=== PATIENT | female | born 1965 | race Caucasian/White ===

== ENCOUNTER 2017-02-09 08:38 | Outpatient (CLI) | payer OTHER ==
[2017-02-09 09:22] LABS: BASOPHILS # (AUTO) 0.2 K/uL (0.00-0.22); BASOPHILS % (AUTO) 3.4 % (0.0-2.0); EOSINOPHILS # (AUTO) 0.2 K/uL (0-0.4); EOSINOPHILS % (AUTO) 2.7 % (0.0-4.0); HEMATOCRIT 37.1 % (36-48); HEMOGLOBIN 12.5 g/dL (12.0-16.0); LYMPHOCYTES # (AUTO) 1.4 K/uL (2.5-16.5); LYMPHOCYTES % (AUTO) 23.4 % (20.5-51.1); MEAN CORPUSCULAR HEMOGLOBIN 31 pg (27-31); MEAN CORPUSCULAR HGB CONC 34 g/dL (33-37); MEAN CORPUSCULAR VOLUME 93 fL (80-94); MONOCYTES # (AUTO) 0.6 K/uL (0.8-1.0); MONOCYTES % (AUTO) 9.3 % (1.7-9.3); NEUTROPHILS # (AUTO) 3.5 K/uL (1.8-7.7); NEUTROPHILS % (AUTO) 61.2 % (42.2-75.2); PLATELET COUNT (AUTO) 269 K/uL (140-450); RED BLOOD CELL COUNT(AUTO) 3.99 MIL/uL (4.20-5.40); WHITE BLOOD COUNT (AUTO) 5.9 K/uL (4.8-10.8)
[2017-02-09 09:46] LABS: APPEARANCE,URINE CLEAR (CLEAR); BILIRUBIN,URINE NEGATIVE (NEGATIVE); BLOOD, URINE NEGATIVE (NEGATIVE); COLOR,URINE YELLOW (YELLOW); LEUKOCYTE ESTERASE ,URINE NEGATIVE (NEGATIVE); NITRITE, URINE NEGATIVE (NEGATIVE); UGLUCOSE NEGATIVE (NEGATIVE)
[2017-02-09 09:48] LABS: RBC,URINE NONE SEEN /HPF (0-5); WBC,URINE 0-5 (RARE) /HPF (0-5)
[2017-02-09 09:52] LABS: ALBUMIN 3.8 g/dL (3.4-5.0); ANION GAP 10.2 (8-16); CARBON DIOXIDE 26.9 mmol/L (21-32); CHOL/HDL RATIO 2.4 (1-4.5); CREATININE 0.8 mg/dL (0.6-1.3); POTASSIUM 4.1 mmol/L (3.5-5.1); THYROID STIMULATING HORMONE 2.25 uIU/mL (0.34-3.74); TOTAL BILIRUBIN 0.3 mg/dL (0.0-1.0)
== END 2017-02-09 20:12 | disposition home or self-care (01) ==
LOC: MLB 08:38
PROVIDERS: ATTEND Family Medicine Geriatric Medicine
DX: Z13.21 Encounter for screening for nutritional disorder (principal); Z13.1 Encounter for screening for diabetes mellitus; Z13.228 Encounter for screening for other metabolic disorders; Z13.0 Encounter for screening for diseases of the blood and blood-forming organs and certain disorders involving the immune mechanism; Z13.220 Encounter for screening for lipoid disorders
CPT/HCPCS: 36415; 80053; 81001; 82306; 83036; 84443; 85025; 87086

== ENCOUNTER 2018-04-16 13:02 | Outpatient (CLI) | payer OTHER ==
[2018-04-16 13:40] LABS: BASOPHILS % (AUTO) 0.5 % (0.0-2.0); EOSINOPHILS # (AUTO) 0.1 K/uL (0-0.4); EOSINOPHILS % (AUTO) 1.3 % (0.0-4.0); HEMATOCRIT 38.7 % (36-48); HEMOGLOBIN 12.8 g/dL (12.0-16.0); LYMPHOCYTES % (AUTO) 29.5 % (20.5-51.1); MEAN CORPUSCULAR HEMOGLOBIN 31 pg (27-31); MEAN CORPUSCULAR HGB CONC 33 g/dL (33-37); MEAN CORPUSCULAR VOLUME 94.4 fL (80-94); MONOCYTES # (AUTO) 0.3 K/uL (0.8-1.0); MONOCYTES % (AUTO) 5.2 % (1.7-9.3); NEUTROPHILS # (AUTO) 4.2 K/uL (1.8-7.7); NEUTROPHILS % (AUTO) 63.5 % (42.2-75.2); PLATELET COUNT (AUTO) 236 K/uL (140-450); RED BLOOD CELL COUNT(AUTO) 4.09 MIL/uL (4.20-5.40); RED CELL DISTRIBUTION WIDTH 12.8 % (11.6-13.7); WHITE BLOOD COUNT (AUTO) 6.6 K/uL (4.8-10.8)
[2018-04-16 13:54] LABS: ALBUMIN 3.9 g/dL (3.4-5.0); ANION GAP 10.1 (8-16); CARBON DIOXIDE 30.7 mmol/L (21-32); CHOL/HDL RATIO 2.8 (1-4.5); CREATININE 0.7 mg/dL (0.6-1.3); POTASSIUM 3.8 mmol/L (3.5-5.1); THYROID STIMULATING HORMONE 1.87 uIU/mL (0.34-3.74); TOTAL BILIRUBIN 0.4 mg/dL (0.0-1.0)
== END 2018-04-16 20:56 | disposition home or self-care (01) ==
LOC: MLB 13:02
PROVIDERS: ATTEND Internal Medicine Geriatric Medicine
DX: Z76.89 Persons encountering health services in other specified circumstances (principal)
CPT/HCPCS: 36415; 80053; 82306; 84443; 85025

== ENCOUNTER 2019-01-21 13:52 | Outpatient (CLI) | payer OTHER | END 2019-01-21 20:15 | disposition home or self-care (01) | LOC: MUS 13:52 | PROVIDERS: ATTEND Internal Medicine Geriatric Medicine | DX: N85.2 Hypertrophy of uterus (principal); K57.30 Diverticulosis of large intestine without perforation or abscess without bleeding; Z90.49 Acquired absence of other specified parts of digestive tract ==

== ENCOUNTER 2019-02-09 07:58 | Emergency (ER) | payer OTHER ==
[~2019-02-09] VITALS: Ht 157.5 cm; Wt 54.4 kg
[2019-02-09 08:00] VITALS: BP 90/53
--- NOTE | 2019-02-09 08:03 | NUR ---
URINE CUP HANDED TO PT FOR SAMPLE
--- NOTE | 2019-02-09 08:05 | NUR ---
PT AMBULATED TO ER BED 03
--- NOTE | 2019-02-09 08:16 | NUR ---
PT BIB SELF C/O BURNING PAIN UPON VOIDING X 4 DAYS ALONG W/ FREQUENCY. TX W/ AZO W/ SOME RELIEF. DENIES BACK PAIN, VAG BLEEDING, N/V, OR FEVER. VSS. HX--DENIES RX---NONE
[2019-02-09] MEDS ORDERED: PHENAZOPYRIDINE 100 MG TAB PO ONE (08:35)
[2019-02-09] MEDS ORDERED: NITROFURANTOIN 100 MG CAP PO ONE (08:35)
[2019-02-09 08:53] VITALS: BP 111/75
--- NOTE | 2019-02-09 08:53 | NUR ---
Patient discharged with v/s stable. Written and verbal after care instructions given and explained. Patient alert, oriented and verbalized understanding of instructions. Ambulatory with steady gait. All questions addressed prior to discharge. ID band removed. Patient advised to follow up with PMD. Rx of MACROBID AND PHENAZOPYRIDINE given. Patient educated on indication of medication including possible reaction and side effects. Opportunity to ask questions provided and answered.
[2019-02-09 08:56] LABS: APPEARANCE,URINE CLEAR (CLEAR); BILIRUBIN,URINE NEGATIVE (NEGATIVE); BLOOD, URINE NEGATIVE (NEGATIVE); COLOR,URINE YELLOW (YELLOW); LEUKOCYTE ESTERASE ,URINE NEGATIVE (NEGATIVE); NITRITE, URINE NEGATIVE (NEGATIVE); PH,URINE 6.5 (5.0-9.0); UGLUCOSE NEGATIVE (NEGATIVE)
== END 2019-02-09 08:53 | disposition home or self-care (01) ==
LOC: MED 07:58
DX: N39.0 Urinary tract infection, site not specified (principal)
CPT/HCPCS: 81003; 87086; 99283

== ENCOUNTER 2019-06-18 11:14 | Emergency (ER) | payer OTHER ==
[~2019-06-18] VITALS: Ht 157.5 cm; Wt 53.5 kg
[2019-06-18 11:20] VITALS: BP 154/75
--- NOTE | 2019-06-18 11:22 | NUR ---
TRIAGE COMPLETE. VSS. RETURNED TO LOBBY TO WAIT FOR BED IN ED.
--- NOTE | 2019-06-18 12:43 | NUR ---
PT AMBULATED TO CHAIR C
--- NOTE | 2019-06-18 14:17 | NUR ---
Patient discharged with v/s stable. Written and verbal after care instructions given and explained. Patient alert, oriented and verbalized understanding of instructions. Ambulatory with steady gait. All questions addressed prior to discharge. ID band removed. Patient advised to follow up with PMD. Rx of PROMETHAZINE DM, MEDROL, CEPACOL given. Patient educated on indication of medication including possible reaction and side effects. Opportunity to ask questions provided and answered.
[2019-06-18 14:19] VITALS: BP 122/71
== END 2019-06-18 14:17 | disposition home or self-care (01) ==
LOC: MED 11:14
DX: J06.9 Acute upper respiratory infection, unspecified (principal); Z90.49 Acquired absence of other specified parts of digestive tract
CPT/HCPCS: 71045; 99283

== ENCOUNTER 2022-08-21 08:30 | Outpatient (CLI) | payer OTHER ==
[2022-08-21 09:25] LABS: BASOPHILS % (AUTO) 0.8 % (0.0-2.0); EOSINOPHILS # (AUTO) 0.1 K/uL (0-0.4); EOSINOPHILS % (AUTO) 2.3 % (0.0-4.0); HEMATOCRIT 37.8 % (36-48); HEMOGLOBIN 12.6 g/dL (12.0-16.0); LYMPHOCYTES # (AUTO) 1.5 K/uL (2.5-16.5); LYMPHOCYTES % (AUTO) 26.1 % (20.5-51.1); MEAN CORPUSCULAR HEMOGLOBIN 31 pg (27-31); MEAN CORPUSCULAR HGB CONC 33 g/dL (33-37); MEAN CORPUSCULAR VOLUME 93.6 fL (80-94); MONOCYTES # (AUTO) 0.4 K/uL (0.8-1.0); NEUTROPHILS # (AUTO) 3.7 K/uL (1.8-7.7); NEUTROPHILS % (AUTO) 63.8 % (42.2-75.2); PLATELET COUNT (AUTO) 250 K/uL (140-450); RED BLOOD CELL COUNT(AUTO) 4.04 MIL/uL (4.20-5.40); RED CELL DISTRIBUTION WIDTH 13.1 % (11.6-13.7); WHITE BLOOD COUNT (AUTO) 5.9 K/uL (4.8-10.8)
[2022-08-21 10:01] LABS: ALBUMIN 3.8 g/dL (3.4-5.0); ANION GAP 10.1 (8-16); CARBON DIOXIDE 29.8 mmol/L (21-32); CHOL/HDL RATIO 2.4 (1-4.5); CREATININE 0.7 mg/dL (0.6-1.3); POTASSIUM 3.9 mmol/L (3.5-5.1); THYROID STIMULATING HORMONE 3.22 uIU/mL (0.34-3.74); TOTAL BILIRUBIN 0.3 mg/dL (0.0-1.0)
[2022-08-21 10:03] LABS: APPEARANCE,URINE CLEAR (CLEAR); BILIRUBIN,URINE NEGATIVE (NEGATIVE); BLOOD, URINE NEGATIVE (NEGATIVE); COLOR,URINE YELLOW (YELLOW); LEUKOCYTE ESTERASE ,URINE NEGATIVE (NEGATIVE); NITRITE, URINE NEGATIVE (NEGATIVE); UGLUCOSE NEGATIVE (NEGATIVE)
[2022-08-22 09:07] LABS: T4 (THYROXINE) 5.8 ug/dL (4.5-12.0)
== END 2022-08-21 20:41 | disposition home or self-care (01) ==
LOC: MLB 08:30
DX: Z12.11 Encounter for screening for malignant neoplasm of colon (principal); E55.9 Vitamin D deficiency, unspecified; Z13.220 Encounter for screening for lipoid disorders; Z13.9 Encounter for screening, unspecified; Z13.1 Encounter for screening for diabetes mellitus; M79.672 Pain in left foot; M20.12 Hallux valgus (acquired), left foot
CPT/HCPCS: 36415; 73630; 80053; 81003; 82272; 82306; 83036; 84436; 84443; 85025